=== PATIENT | male | born 1960 | race Caucasian/White ===

== ENCOUNTER 2017-09-10 00:34 | Observation (INO) ==
[~2017-09-10 00:34] MED LIST: Aminoglycoside Consult 1 EACH MC ONE
--- NOTE | 2017-09-10 00:46 | Emergency Department Note ---
Disposition Clinical Impression: Hyperkalemia Urinary tract infection Qualifiers: Urinary tract infection type: acute cystitis Hematuria presence: with hematuria Qualified Code(s): N30.01 - Acute cystitis with hematuria Acute renal failure Qualifiers: Acute renal failure type: unspecified Qualified Code(s): N17.9 - Acute kidney failure, unspecified Obstructed Mackey catheter Qualifiers: Encounter type: initial encounter Qualified Code(s): T83.091A - Other mechanical complication of indwelling urethral catheter, initial encounter Altered mental status Qualifiers: Altered mental status type: transient alteration of awareness Qualified Code(s) : R40.4 - Transient alteration of awareness Disposition: Admitted As Inpatient Condition: Fair Forms: ED Satisfaction Letter General Adult HPI - General Chief complaint: ED Urogenital-Male Stated complaint: possible UTI Time Seen by Provider: 09/10/17 00:44 Source: EMS, other (The assisted personnel) Mode of arrival: EMS Limitations: physical limitation Nursing Notes Reviewed: Yes Vital Signs Reviewed: Yes - History of Present Illness HPI Narrative: The patient has had recent bloody urine for which he was thought to have possible urosepsis. Did have a white count elevation of 24, some mild renal insufficiency a potassium of 5.1 on September 08. He is on Coumadin and his INR was 2.7. He was given a dose of Levaquin 750 mg orally and a PICC line was established on September 09 which is been receiving vancomycin 2 g every 8 hours and aztreonam 2 g IV every 8 hours. He is reported is that he was insistent in the assisted of coming to the emergency department and he was therefore transported. The nurse at the assisted states she tried to explain to the patient that he is artery had his blood work performed, cultures pending and is on IV fluids and broad-spectrum antibiotics such that little else could be performed at the hospital. He is almost 520 pounds and has not been having new respiratory complaints with his chronic respiratory failure, trach and vent dependence. There is not any particular imaging or other testing that we would perform it would be different. It is reported that the patient was insistent and he is therefore sent here for evaluation. They did not report any specific fevers or chills. He has had some decreased urinary output. He has not been having increased pressures are bucking the vent. He is not having cough or increased respiratory secretions. He has not had reported vomiting, diarrhea or new abdominal pains. He has not had increased swelling or cellulitis. His last vital signs were unremarkable. Little history is obtainable from the patient due to his chronic medical problems vent dependency. Onset (ago): day(s) Associated symptoms: Reports: confusion, malaise, weakness - Related Data Home Medications Medication Instructions Recorded Confirmed Budesonide [Pulmicort] 0.25 mg IH DAILY 09/10/17 09/10/17 Docusate [Colace] 100 mg INTRATRACH BID 09/10/17 09/10/17 Ezetimibe [Zetia] 10 mg PO DAILY 09/10/17 09/10/17 Famotidine [Pepcid] 20 mg PO BID 09/10/17 09/10/17 Furosemide [Lasix] 80 mg PO BID 09/10/17 09/10/17 HydrOXYzine Pamoate [Vistaril] 25 mg PO Q6H 09/10/17 09/10/17 Ipratropium/Albuterol Neb [Duoneb] 3 ml IH Q6HR 09/10/17 09/10/17 Levothyroxine Sodium [Tirosint] 125 mcg PO DAILY 09/10/17 09/10/17 Metoprolol [Lopressor] 12.5 mg PO BID 09/10/17 09/10/17 Ondansetron HCl [Zofran] 4 mg PO Q4H 09/10/17 09/10/17 Potassium Chloride [K-Tab ER] 20 meq INTRATRACH TID 09/10/17 09/10/17 Sennosides [Senna] 8.6 mg PO BID PRN 09/10/17 09/10/17 Allergies Allergy/AdvReac Type Severity Reaction Status Date / Time Penicillins [PCN] Allergy Anaphylaxis Verified 09/10/17 00:49 Limitations: ROS unobtainable due to patients medical condition Past Medical History - Past Medical History Source: old records reviewed, nursing notes reviewed Medical history: Reports: atrial fibrillation, GERD, hyperlipidemia, hypertension, thyroid disease, other (Morbid obesity, chronic respiratory failure with ventilator dependency) Surgical history: Reports: tracheostomy, other (Suprapubic catheter) Psychiatric history: Reports: other (Psychosis) - Social History Smoking Status: Never smoker Smokeless Tobacco Status: No Alcohol use: Reports: none Drug use: Reports: none Physical Exam - General Limitations: physical limitation General appearance: alert, in no apparent distress - Head Head exam: atraumatic, normocephalic, normal inspection - Eye Eye exam: Present: PERRL. Absent: scleral icterus, conjunctival injection - ENT ENT exam: normal exam, normal oropharynx, mucous membranes moist - Neck Neck exam: Present: normal inspection, full ROM, trachea midline, other ( Tracheostomy is intact without inflammation, discharge or bleeding.) - Chest Chest inspection: Present: normal inspection, symmetric chest wall rise - Respiratory Respiratory exam: Present: normal lung sounds bilaterally. Absent: respiratory distress, wheezes, prolonged expiratory phase - Cardiovascular Cardiovascular exam: Present: regular rate, normal rhythm, normal heart sounds - Abdominal Exam Abdominal exam: Present: soft, Non-Tender, distention, hernia (Large, left-sided ). Absent: guarding, rebound, rigidity - Extremities Exam Extremities exam: Present: normal capillary refill. Absent: tenderness - Expanded Lower Extremity Exam Neurovascular/Tendon exam: Present: normal capillary refill. Absent: motor deficit, sensory deficit, tendon deficit Gait: not tested/not observed - Neurological Exam Neurological exam: Present: alert. Absent: normal gait - Psychiatric Psychiatric exam: Present: normal affect, normal mood. Absent: agitated, anxious - Skin Skin exam: Present: warm, dry, intact, normal color. Absent: diaphoresis, pallor Course Course Narrative: Patient's laboratory testing from September 08 his been reviewed. He did have a urine sample and a chemistry to that arrived here prior to his arrival from the assisted. He did have a potassium of 5.2 and some mild renal insufficiency on his chemistries believe it will be prudent to repeat basic metabolic panel. We will submit his urine so that it can also be cultured. He was given Levaquin on September 08 and has had a PICC line established on September 09 through which she is receiving vancomycin 2 g every 8 hours and aztreonam 2 g every 8 hours. This should be adequate broad-spectrum coverage pending return of cultures. We will await the return of repeat testing to determine his ultimate disposition. The nurse has called to the assisted to clarify the patient's recent history. He has had some more confusion and weakness. They reported that he had 2 L of urine out the day before but only 70 mL in the last hour. He was when they had rolled him that he had some blood around the Mackey catheter. At that juncture we did try to flush the Mackey catheter and did not have much return. The suprapubic catheter was then removed and replaced with an immediate gush of bloody fluid followed by clear yellow urine. It appears the catheter was dislodged at some point an obstructed. With return of laboratory demonstrating progressive renal insufficiency as well as hyperkalemia, I believe he will need. Of observation. He has been written to receive a dose of sodium bicarbonate and a liter of saline. He likely has been having an obstructive uropathy at this time which should clear with hydration. I discussed care with Dr. Russ who is agreeable with a recheck of his laboratories in the early afternoon today. He will be observed at this facility to continue with hydration with close following of his urinary output. Vital Signs Temperature 97.4 F L 09/10/17 00:35 Pulse Rate 105 09/10/17 00:35 Respiratory Rate 18 09/10/17 00:35 Blood Pressure 114/83 09/10/17 00:35 O2 Sat by Pulse Oximetry 96 09/10/17 00:35 Temperature 97.4 F L 09/10/17 00:35 Pulse Rate 105 09/10/17 00:35 Respiratory Rate 17 09/10/17 01:00 Blood Pressure 114/83 09/10/17 00:35 O2 Sat by Pulse Oximetry 96 09/10/17 01:00 Oxygen Delivery Oxygen Delivery Trach Mask,Ventilator Medical Decision Making - Medical Records Medical records reviewed: Yes I reviewed the patient's medical records. - Lab Data Lab results reviewed: Yes I reviewed the patient's lab results. Lab results narrative: Laboratories reviewed from September 08. Had a white count 24.1, hemoglobin 11.8 and platelets 286. His INR was 2.7. He had a sodium of 130, potassium of 5.2, BUNs of 34, creatinine 1.41. He had LFTs which were normal. Result diagrams: 09/10/17 Unknown Lab Results 09/10/17 09/10/17 Range/Units Unknown Unknown Sodium 131 L (136-145) mEq/L Potassium 5.8 H (3.5-5.1) mEq/L Chloride 92 L (98-107) mEq/L Carbon Dioxide 28 (23-29) mEq/L BUN 49 H (6-20) mg/dL Creatinine 2.40 H (0.70-1.30) mg/dL Est GFR ( Amer) 34 L (> 60) Est GFR (Non-Af Amer) 28 L (> 60) BUN/Creatinine Ratio 20 (6-26) Glucose 98 (70-105) mg/dL Calculated Osmolality 285 (280-300) Calcium 8.2 L (8.6-10.3) mg/dL Urine Color Chayo A (Yellow) Urine Clarity Slightly Cloudy A (Clear) Urine pH 5.0 (5.0-8.0) pH Units Ur Specific [place] 1.015 (1.010-1.025) Urine Protein >=300 H (Neg-Trace) mg/dL Urine Glucose (UA) Normal (Normal) mg/dL Urine Ketones Negative (Negative) mg/dL Urine Blood Large H (Negative) Urine Nitrite Negative (Negative) Urine Bilirubin Small H (Negative) Urine Urobilinogen Normal (Normal) mg/dL Ur Leukocyte Esterase Small H (Negative) Urine Microscopic RBC 15-30 H (0-3) per hpf Urine Microscopic WBC TNTC H (0-3) per hpf Ur Squamous Epith Cells Few (None-Few) per lpf Urine Bacteria Moderate H (None-Few) per hpf Ur Culture Indicated? YES A (NO)
[2017-09-10 00:59] LABS: Bilirubin,Urine Small (Negative); Blood,Urine Large (Negative); Clarity,Urine Slightly Cloudy (Clear); Color,Urine Amber (Yellow); Glucose,Urine (UA) Normal (Normal); Ketones,Urine Negative (Negative); Leukocyte Esterase,Urine Small (Negative); Nitrite,Urine Negative (Negative); Protein,Urine >=300 mg/dL (Neg-Trace); Specific Gravity,Urine 1.015 (1.010-1.025); Urobilinogen,Urine Normal (Normal)
[2017-09-10 01:08] LABS: Bacteria,Urine Moderate per hpf (None-Few); RBC,Urine 15-30 per hpf (0-3); Squamous Epithelial Cell,Urine Few per lpf (None-Few); WBC,Urine TNTC per hpf (0-3)
[2017-09-10 01:20] LABS: Calcium 8.2 mg/dL (8.6-10.3); Potassium 5.8 mEq/L (3.5-5.1)
[2017-09-10] MEDS ORDERED: 0.9 % Sodium Chloride 1,000 ML IVC ONE (02:12)
[2017-09-10] MEDS ORDERED: 0.9 % Sodium Chloride 1,000 ML ONE (02:19)
[2017-09-10] MEDS ORDERED: Naloxone 0.4 MG/ML INJ IVP PRN (05:44)
[2017-09-10] MEDS ORDERED: 0.9 % Sodium Chloride 1,000 ML IVC SCH (05:44)
[2017-09-10] MEDS ORDERED: Sennosides 8.6 MG TABLET PO PRN (05:44)
[2017-09-10] MEDS: Ondansetron ODT 4 MG TAB.RAPDIS PO SCH ×5 (06:23→22:00)
[2017-09-10] MEDS: hydrOXYzine pamoate 25 MG CAPSULE PO SCH ×4 (06:23→18:07)
[2017-09-10] MEDS ORDERED: Famotidine 20 MG TABLET PO SCH (07:30)
[2017-09-10] MEDS ORDERED: Furosemide 40 MG TABLET PO SCH (08:00)
[2017-09-10] MEDS ORDERED: Aztreonam 2,000 MG in D5% in Water (Mini-Bag+) 100 ML IVPB SCH (08:00)
[2017-09-10] MEDS ORDERED: Budesonide Neb 0.25 MG/2 ML IH SCH (09:00)
[2017-09-10] MEDS: Potassium Chloride Elixir 20 MEQ/15 ML UDC PO SCH ×2 (09:14→09:18)
[2017-09-10] MEDS ORDERED: Ipratropium/Albuterol Neb 3 ML IH SCH (10:00)
--- NOTE | 2017-09-10 11:55 | Internal Med History&Physical ---
Date of Encounter: 09/10/17 Time of Encounter: 11:30 Assessment and Plan (1) Acute renal failure Current visit: Yes Status: Acute Creatinine was normal at 1.25 on 08/30/2017. We will hold Lasix and give IV fluids. We will monitor renal indices. Qualifiers: Acute renal failure type: unspecified Qualified Code(s): N17.9 - Acute kidney failure, unspecified (2) Hyperbilirubinemia Current visit: Yes Status: Chronic Bilirubin was 1.7 on 08/30/2017. We will adjust medications and monitor LFTs. (3) Hyperglobulinemia Current visit: Yes Status: Acute Chronic. We will order serum protein electrophoresis. (4) Anemia Current visit: Yes Status: Acute Chronic. Hemoglobin was 9.4 on 06/06/2017. Anemia testing has been ordered. Qualifiers: Anemia type: unspecified type Qualified Code(s): D64.9 - Anemia, unspecified (5) Leukocytosis Current visit: Yes Status: Acute Possible UTI although indwelling Mackey complicates interpretation. Body habitus causes challenges to adequate chest x-ray evaluation. Qualifiers: Leukocytosis type: bandemia Qualified Code(s): D72.825 - Bandemia (6) Hyperkalemia Current visit: Yes Status: Acute Probably secondary to potassium use with acute renal failure. We will give IV fluids and hold supplemental potassium. Monitor labs. Internal Medicine - H&P: HPI Chief complaint: UTI Admitted From: Emergency Dept Plans for Post Hospital Care: Transfer Senior Living Facility History of present illness: Mr. Chester is a 57 year old male who was sent from [facility] to emergency room for evaluation at his request. Available records relate he had been treated with IV vancomycin and Azactam for UTI at the care home since a PICC line was inserted 09/09/2017. WBC 09/08/2017 returned significantly elevated at 24.1 with left shift seen on differential. He cannot give additional history in emergency room. He was found to have acute azotemia and hyperkalemia. He was admitted to [facility] floor for ongoing care needs. He is obtunded and cannot give significant history. Past Med Surg Social Fam HX - Past Medical History Medical history: atrial fibrillation, GERD, hyperlipidemia, hypertension, thyroid disease, other Psychiatric history: other - Past Surgical History Surgical History: tracheostomy, other - Social History Smoking Status: Never smoker Smokeless Tobacco Status: No Alcohol use: none Drug use: none Internal Medicine - H&P: Meds Budesonide [Pulmicort] 0.25 mg IH DAILY 09/10/17 [History] Docusate [Colace] 100 mg INTRATRACH BID 09/10/17 [History] Ezetimibe [Zetia] 10 mg PO DAILY 09/10/17 [History] Famotidine [Pepcid] 20 mg PO BID 09/10/17 [History] Furosemide [Lasix] 80 mg PO BID 09/10/17 [History] HydrOXYzine Pamoate [Vistaril] 25 mg PO Q6H 09/10/17 [History] Ipratropium/Albuterol Neb [Duoneb] 3 ml IH Q6HR 09/10/17 [History] Levothyroxine Sodium [Tirosint] 125 mcg PO DAILY 09/10/17 [History] Metoprolol [Lopressor] 12.5 mg PO BID 09/10/17 [History] Ondansetron HCl [Zofran] 4 mg PO Q4H 09/10/17 [History] Potassium Chloride [K-Tab ER] 20 meq INTRATRACH TID 09/10/17 [History] Sennosides [Senna] 8.6 mg PO BID PRN 09/10/17 [History] 3 Allergy/AdvReac Type Severity Reaction Status Date / Time Penicillins [PCN] Allergy Anaphylaxis Verified 09/10/17 00:49 All Systems PM: A 10-system review of systems was performed and is negative for pertinent findings except as documented above in the HPI. Review of systems: Unobtainable since the patient is obtunded - Constitutional Vitals: Temp Pulse Resp BP Pulse Ox 97.4 F L 70 20 106/59 93 09/10/17 10:30 09/10/17 10:30 09/10/17 10:30 09/10/17 10:30 09/10/17 10:30 Exam: Gen.: He is a well-developed morbidly obese male lying in bed who is obtunded. He arouses minimally to light touch. HEENT: Head is atraumatic and normocephalic. Eyes: He has slight left exophthalmus. Right eye appears normal. There is no scleral icterus. Mouth: Mucosa is not seen well but appears to be moist. Neck: He has a large neck with a full arellano. Tracheostomy is in place with ventilator attached at the lower anterior neck. Heart: Irregularly irregular. Tones are soft. Lungs: Clear anteriorly and laterally. Abdomen: He has a massive abdomen. There is dependent edema in the dependent portions of the abdominal wall. He appears to have an abdominal hernia. Extremities: His feet and lower legs are wrapped in elastic wrap with underlying gauze which I did not remove. He has dependent edema of his legs. Neurologic: Mental status: He is obtunded as per above. No further neurologic testing is attempted. Skin: Visualized skin is warm and dry. Internal Med - H&P Results - Labs CBC & Chem 7: 09/10/17 Unknown Labs: BMP 09/10/17 Unknown Sodium 131 L Potassium 5.8 H Chloride 92 L Carbon Dioxide 28 BUN 49 H Creatinine 2.40 H Glucose 98 Calcium 8.2 L Urine 09/10/17 Range/Units Unknown Urine Color Chayo A (Yellow) Urine Clarity Slightly Cloudy A (Clear) Urine pH 5.0 (5.0-8.0) pH Units Ur Specific [place] 1.015 (1.010-1.025) Urine Protein >=300 H (Neg-Trace) mg/dL Urine Glucose (UA) Normal (Normal) mg/dL
[2017-09-10 14:56] LABS: ABG Base Excess 1 mEq/L (-2 to 3); ABG HCO3 28 mEq/L (21-27); ABG Oxygen Saturation 97 % (95-98); ABG PCO2 53 mmHg (35-45); ABG PH 7.33 pH Units (7.32-7.45); ABG PO2 96 mmHg (85-104); ABG TCO2 30 mEq/L (20-26); Blood Gas Modality ASSIST CONTROL; Blood Gas PEEP 8 cm H2O; Blood Gas Respiration Rate 14; Blood Gas VT 480 cc
[2017-09-10 19:01] LABS: Hematocrit 32.4 % (37.5-50.1); Hemoglobin 10.5 g/dL (12.9-16.9); Mean Corpuscular HGB Conc 32.4 g/dL (31.6-35.5); Mean Corpuscular Hemoglobin 28.2 pg (28.0-33.3); Mean Corpuscular Volume 87.1 fL (83.0-100.0); Mean Platelet Volume 10.3 fL (9.4-12.4); Nucleated Red Blood Cells 0.1 /100 WBC (0); Platelet Count 213 K/mcL (140-400); Red Blood Count 3.72 M/mcL (4.19-5.50); Red Cell Distribution Width 15.7 % (11.5-14.5)
[2017-09-10 19:23] LABS: Calcium 7.9 mg/dL (8.6-10.3); Magnesium 2.4 mg/dL (1.6-2.6); Phosphorous 7.1 mg/dL (2.7-4.5); Potassium 6.1 mEq/L (3.5-5.1)
[2017-09-10 19:25] LABS: Lymphocytes # 0.7 K/mcL (0.6-4.6); Monocytes # 1.3 K/mcL (0.0-1.3); Neutrophils # 28.6 K/mcL (1.6-8.9)
[2017-09-10 19:26] LABS: Platelet Estimate Normal (Normal); Toxic Granulation Present (Not Present)
[2017-09-10 21:39] LABS: % Iron Saturation 27 % (20-55); Ferritin 726 ng/ml (20-250); Iron 46 mcg/dL (65-175); Transferrin 122 mg/dL (203-362)
[2017-09-10 21:53] LABS: Folate 6.3 ng/mL (3.0-16.0)
[2017-09-10 21:55] LABS: Vitamin B12 > 1500 pg/mL (250-1100)
[2017-09-11] MEDS: hydrOXYzine pamoate 25 MG CAPSULE PO SCH ×2 (01:49→08:53)
[2017-09-11] MEDS: Ondansetron ODT 4 MG TAB.RAPDIS PO SCH ×3 (04:59→08:52)
[2017-09-11 06:10] LABS: Hematocrit 33.6 % (37.5-50.1); Hemoglobin 10.7 g/dL (12.9-16.9); Mean Corpuscular HGB Conc 31.8 g/dL (31.6-35.5); Mean Corpuscular Hemoglobin 28.2 pg (28.0-33.3); Mean Corpuscular Volume 88.4 fL (83.0-100.0); Mean Platelet Volume 10.5 fL (9.4-12.4); Nucleated Red Blood Cells 0.1 /100 WBC (0); Platelet Count 232 K/mcL (140-400); Red Cell Distribution Width 15.7 % (11.5-14.5)
[2017-09-11 06:43] LABS: Calcium 7.9 mg/dL (8.6-10.3)
[2017-09-11 07:53] LABS: Lymphocytes # 1.6 K/mcL (0.6-4.6); Monocytes # 0.5 K/mcL (0.0-1.3); Neutrophils # 24.8 K/mcL (1.6-8.9)
[2017-09-11] MEDS ORDERED: Budesonide Neb 0.25 MG/2 ML IH SCH (10:00)
[2017-09-11 12:22] VITALS: BP 134/79
[2017-09-11 15:22] LABS: ABG Base Excess -4 mEq/L (-2 to 3); ABG HCO3 29 mEq/L (21-27); ABG Oxygen Saturation 99 % (95-98); ABG PCO2 86 mmHg (35-45); ABG PH 7.13 pH Units (7.32-7.45); ABG PO2 208 mmHg (85-104); ABG TCO2 31 mEq/L (20-26); Blood Gas Modality ASSIST CONTROL
--- NOTE | 2017-09-11 15:58 | Discharge Summary ---
Orders not resulted at time of discharge: Pending orders 09/10/17 11:54 ECG 12 lead ECG [ECG] Routine 09/10/17 18:45 Protein Electrophoresis Routine 09/11/17 15:27 Chest Xray, 1 view [XR chest 1V] [XR] Stat Date of Encounter: 09/11/17 Time of Encounter: 15:00 - Discharge Diagnosis (1) Acute renal failure Priority: Primary Status: Acute Qualifiers: Acute renal failure type: unspecified Qualified Code(s): N17.9 - Acute kidney failure, unspecified (2) Hyperbilirubinemia Priority: Secondary Status: Chronic (3) Hyperglobulinemia Priority: Secondary Status: Acute (4) Anemia Priority: Secondary Status: Acute Qualifiers: Anemia type: unspecified type Qualified Code(s): D64.9 - Anemia, unspecified (5) Leukocytosis Priority: Secondary Status: Acute Qualifiers: Leukocytosis type: bandemia Qualified Code(s): D72.825 - Bandemia (6) Hyperkalemia Priority: Secondary Status: Acute Hospital course: Mr. Chester is a 57 year old male who was sent from [facility] to emergency room for evaluation at his request. Available records relate he had [facility] a [facility] line was inserted 09/09/2017. WBC 09/08/2017 returned significantly elevated at 24.1 with left shift seen on differential. He cannot give additional history in emergency room. He was found to have acute azotemia and hyperkalemia. He was admitted to [facility] floor for ongoing care needs. Initial orders were written by the emergency room physician. I saw him on September 10 and performed a history and physical. Lasix was held and IV fluids were given. Renal indices showed slight worsening on September 11 with creatinine rising to 3.11 and estimated GFR decreasing to 21. Potassium supplementation was held and 0.45 normal saline IV was started. His potassium decreased to 6.0 on labs September 11. Blood gas the day of admission showed normal pH of 7.33 with PCO2 53 and PO2 of 96. On the early afternoon of September 11 the respiratory therapist notified me that the patient's trach cuff was likely leaking. A repeat blood gas showed pH 7.13 and PCO2 of 86. There was significant decrease in return tidal volumes. Patient was taken off the ventilator and bagging was begun. I discussed the situation with Dr. Beach in emergency room and I agreed with his suggestion of inserting an endotracheal tube through the patient's existing trach. A 5.5 cuffed ET tube was successfully inserted through the trach after removal of the inner cannula. Follow-up chest x-ray for placement showed essentially complete white out of the left lung which I felt was likely due to mucus plugging. I spoke with bed management at [facility] as well as the ER physician at [facility] and it was agreed the patient would be sent to [facility] emergency room for further evaluation and intervention. A serum protein electrophoresis was ordered to further evaluate his hyperglobulinemia. This result is pending at time of transfer. - Time Spent with Patient Total time spent providing and/or coordinating discharge services: - Discharge Medications Home Medications: Budesonide [Pulmicort] 0.25 mg IH DAILY 09/10/17 [History] Docusate [Colace] 100 mg INTRATRACH BID 09/10/17 [History] Ezetimibe [Zetia] 10 mg PO DAILY 09/10/17 [History] Famotidine [Pepcid] 20 mg PO BID 09/10/17 [History] Furosemide [Lasix] 80 mg PO BID 09/10/17 [History] HydrOXYzine Pamoate [Vistaril] 25 mg PO Q6H 09/10/17 [History] Ipratropium/Albuterol Neb [Duoneb] 3 ml IH Q6HR 09/10/17 [History] Levothyroxine Sodium [Tirosint] 125 mcg PO DAILY 09/10/17 [History] Metoprolol [Lopressor] 12.5 mg PO BID 09/10/17 [History] Ondansetron HCl [Zofran] 4 mg PO Q4H 09/10/17 [History] Potassium Chloride [K-Tab ER] 20 meq INTRATRACH TID 09/10/17 [History] Sennosides [Senna] 8.6 mg PO BID PRN 09/10/17 [History] Allergies/Adverse Reactions: 3 Allergy/AdvReac Type Severity Reaction Status Date / Time Penicillins [PCN] Allergy Anaphylaxis Verified 09/10/17 00:49 Date of admission: 09/10/17 03:59 Primary care physician: Dirk Juschka, M.D. - Constitutional Vitals: Temp Pulse Resp BP Pulse Ox 97.9 F 73 20 134/79 95 09/11/17 11:15 09/11/17 11:15 09/11/17 11:15 09/11/17 11:15 09/11/17 12:37 - Patient Status Disposition: Transfer Other Condition: Fair - Discharge Instructions
[2017-09-11 17:01] LABS: ABG PCO2 > 150 mmHg (35-45); ABG PH 6.85 pH Units (7.32-7.45); ABG PO2 62 mmHg (85-104)
[2017-09-15 05:16] LABS: Alpha 2 Globulin (PEP) 0.93 g/dL (0.48-1.05); Beta Globulin (PEP) 1.18 g/dL (0.48-1.10)
[2017-09-15 09:24] LABS: IFE Reflexed IFE Done; Immunoglobulin A 820 mg/dL (68-408); Immunoglobulin G 2210 mg/dL (768-1632); Immunoglobulin M 255 mg/dL (35-263)
== END 2017-09-11 15:55 | disposition short-term general hospital (02) ==
LOC: INPPIK 00:34 → EMEROOPIK 00:34 → INPPIK 04:51
PROVIDERS: ADMIT Internal Medicine; ATTEND Internal Medicine